=== PATIENT | male | born 1975 | race African-American/Black ===

== ENCOUNTER 2017-10-07 14:30 | Emergency (ER) | payer MEDICAID ==
[~2017-10-07] VITALS: Ht 182.9 cm; Wt 96.0 kg
[2017-10-07] MEDS ORDERED: KETOROLAC 30 MG/1 ML IM ONE (15:00)
[2017-10-07] MEDS ORDERED: PLEASE ENTER ALLERGIES MC SCH (15:00)
[2017-10-07] MEDS ORDERED: trazadone PO (15:04)
[2017-10-07] MEDS ORDERED: LEVE750T37 PO (15:04)
[2017-10-07] MEDS ORDERED: KETOROLAC 30 MG/1 ML ONE (15:35)
[2017-10-07 16:18] VITALS: BP 155/94
== END 2017-10-07 16:22 | disposition home or self-care (01) ==
LOC: ED 15:00
DX: M79.605 Pain in left leg (principal); F12.10 Cannabis abuse, uncomplicated; W20.8XXA Other cause of strike by thrown, projected or falling object, initial encounter; Y93.89 Activity, other specified; Y92.89 Other specified places as the place of occurrence of the external cause; Y99.0 Civilian activity done for income or pay
CPT/HCPCS: 99284